=== PATIENT | male | born 1980 | race African-American/Black ===

== ENCOUNTER 2024-11-26 08:22 | Emergency (ER) | payer BC, OTHER ==
[~2024-11-26] VITALS: Ht 182.9 cm; Wt 78.0 kg
[2024-11-26 08:25] VITALS: O2SAT 99
[2024-11-26] MEDS: IBUPROFEN 400MG TABLET PO ONE (08:46)
[2024-11-26] MEDS: LIDOCAINE 5% PATCH TOP SCH (08:46)
[2024-11-26] MEDS ORDERED: LIDO1ADH71 EXT (09:13)
[2024-11-26] MEDS ORDERED: CYCL10TA21 MT (09:15)
[2024-11-26] MEDS ORDERED: IBUP-2028 MT (09:16)
[2024-11-26 09:25] VITALS: BP 137/101; PULSE 75; RESP 16; TEMP 36.6; O2SAT 99
== END 2024-11-26 09:35 | disposition home or self-care (01) ==
LOC: ER 08:22
DX: M62.838 Other muscle spasm (principal)
CPT/HCPCS: 99283

== ENCOUNTER 2024-12-04 09:49 | Inpatient (IN) | payer OTHER ==
[~2024-12-04] VITALS: Ht 182.9 cm; Wt 79.8 kg
[~2024-12-04 09:49] MED LIST: CYCL10TA21 MT; IBUP-2028 MT; LIDO1ADH71 EXT
[2024-12-04] MEDS ORDERED: IOHEXOL-350 100 ML BOTTLE ONE (11:10)
[2024-12-04 11:14] LABS: BASOPHILS % 1.2 % (0.0-2.0); EOSINOPHILS % 1.2 % (0.0-5.0); HEMATOCRIT. 42.7 % (42.0-52.0); LYMPHOCYTES % 25.2 % (20.0-50.0); MEAN CORPUSCULAR HEMOGLOBIN 26.7 pg (28.0-32.0); MEAN CORPUSCULAR HGB CONC 32.7 g/dL (31.0-37.0); MEAN CORPUSCULAR VOLUME 81.4 fL (80.0-94.0); MEAN PLATELET VOLUME 8.8 fl (7.4-10.4); MONOCYTES % 7.2 % (2.0-8.0); NEUTROPHILS % 65.2 % (40.0-76.0); PLATELET 294 x1000/uL (130-400); RED BLOOD CELL COUNT 5.24 mill/uL (4.7-6.1); RED CELL DISTRIBUTION WIDTH 14.9 % (11.6-14.6)
[2024-12-04 11:24] LABS: PROTHROMBIN TIME 10.6 sec (9.6-11.0)
[2024-12-04 11:49] LABS: CHLORIDE 103 mEq/L (98-107); POTASSIUM 4.1 mEq/L (3.5-5.1); SODIUM 139 mEq/L (136-145)
[2024-12-04 11:50] LABS: CALCIUM 9.1 mg/dL (8.7-10.4); CARBON DIOXIDE 24 mEq/L (21-32)
[2024-12-04 11:55] LABS: CREATININE 0.9 mg/dL (0.6-1.3); GLUCOSE 95 mg/dL (70-105); UREA NITROGEN BLOOD 11 mg/dL (9-23)
[2024-12-04 11:56] LABS: ETHANOL BLOOD 40 mg/dL (<10)
[2024-12-04 12:03] LABS: CLARITY URINE CLEAR (CLEAR); COLOR URINE YELLOW (YELLOW); GLUCOSE URINE NEGATIVE (NEGATIVE); KETONES URINE NEGATIVE (NEGATIVE); LEUKOCYTE ESTERASE URINE NEGATIVE (NEGATIVE); NITRITE URINE NEGATIVE (NEGATIVE); OCCULT BLOOD URINE NEGATIVE (NEGATIVE); PROTEIN URINE NEGATIVE (NEGATIVE); UROBILINOGEN URINE 0.2 E.U./dL (0.2-1.0)
[2024-12-04 12:21] LABS: *AMPHETAMINES SCREEN URINE NEGATIVE (NEGATIVE); *BARBITURATES SCREEN URINE NEGATIVE (NEGATIVE); *BENZODIAZEPINES SCREEN URINE NEGATIVE (NEGATIVE); *COCAINE SCREEN URINE NEGATIVE (NEGATIVE); CANNABINOID URINE SCREEN NEGATIVE (NEGATIVE); ECSTASY MDMA SCREEN URINE NEGATIVE (NEGATIVE); METHADONE URINE SCREEN NEGATIVE (NEGATIVE); OPIATES URINE SCREEN NEGATIVE (NEGATIVE); PHENCYCLIDINE URINE SCREEN NEGATIVE (NEGATIVE)
[2024-12-04] MEDS: KETOROLAC 30MG/ML VIAL IV STA (13:28)
[2024-12-04] MEDS: ACETAMINOPHEN 325MG TABLET PO STA (13:29)
[2024-12-04] MEDS ORDERED: ONDANSETRON HCL 4MG/2ML INJ IV PRN (14:15)
[2024-12-04] MEDS ORDERED: CLONIDINE 0.1MG TABLET PO PRN (14:15)
[2024-12-04] MEDS ORDERED: DOCUSATE SODIUM 100MG CAPSULE PO PRN (14:15)
[2024-12-04] MEDS ORDERED: IPRATROPIUM/ALBUTEROL 0.5-3(2.5)MG/3ML NEB HHN PRN (14:15)
[2024-12-04] MEDS ORDERED: ACETAMINOPHEN 325MG TABLET PO PRN ×2 (14:15)
[2024-12-04] MEDS ORDERED: GUAIFENESIN 200MG/10ML SUGAR FREE UDC PO PRN (14:15)
[2024-12-04] MEDS ORDERED: MAGNESIUM/ALUMINUM HYDROXIDE/SIMETHICONE 30ML UDC PO PRN (14:15)
[2024-12-04 14:30] VITALS: BP_SYST 131; BP_SYST 137; BP_DIAS 83; PULSE 87; RESP 18; RESP 20; TEMP 36.6; TEMP 36.7; O2SAT 100
[2024-12-04] MEDS: THIAMINE HCL 100MG TABLET PO SCH (15:21)
[2024-12-04 16:00] VITALS: BP 128/79; PULSE 91; RESP 18; TEMP 36.7; O2SAT 100
[2024-12-04 20:00] VITALS: BP 138/89; PULSE 90; RESP 18; TEMP 36.4; O2SAT 98
[2024-12-04] MEDS: ENOXAPARIN 40MG/0.4ML SYR SUBCUT SCH (20:59)
[2024-12-04] MEDS: BACLOFEN 10MG TABLET PO SCH (21:17)
[2024-12-04] MEDS: CYCLOBENZAPRINE 10MG TABLET PO SCH (21:17)
[2024-12-05] VITALS: BP 129/89; PULSE 64; RESP 20; TEMP 36.4; O2SAT 99
[2024-12-05 04:00] VITALS: BP 135/93; PULSE 66; RESP 18; TEMP 36.4; O2SAT 99
[2024-12-05] MEDS: PANTOPRAZOLE 40MG DR TABLET PO SCH (06:24)
[2024-12-05 07:02] LABS: BASOPHILS % 0.8 % (0.0-2.0); EOSINOPHILS % 1.7 % (0.0-5.0); HEMATOCRIT. 41.4 % (42.0-52.0); HEMOGLOBIN. 13.6 g/dL (14.0-18.0); LYMPHOCYTES % 28.5 % (20.0-50.0); MEAN CORPUSCULAR HEMOGLOBIN 26.6 pg (28.0-32.0); MEAN CORPUSCULAR HGB CONC 32.8 g/dL (31.0-37.0); MEAN CORPUSCULAR VOLUME 81.2 fL (80.0-94.0); MEAN PLATELET VOLUME 9.2 fl (7.4-10.4); PLATELET 260 x1000/uL (130-400); RED CELL DISTRIBUTION WIDTH 14.7 % (11.6-14.6); WHITE BLOOD COUNT 6.2 x1000/uL (4.5-11.0)
[2024-12-05 07:08] LABS: CALCIUM 9.4 mg/dL (8.7-10.4); CARBON DIOXIDE 25 mEq/L (21-32); CHLORIDE 101 mEq/L (98-107); POTASSIUM 3.9 mEq/L (3.5-5.1); SODIUM 135 mEq/L (136-145)
[2024-12-05 07:13] LABS: CREATININE 0.9 mg/dL (0.6-1.3); GLUCOSE 94 mg/dL (70-105); TRIGLYCERIDE 436 mg/dL (0-150)
[2024-12-05 07:14] LABS: LDL CHOLESTEROL 83 mg/dL (5-100); UREA NITROGEN BLOOD 11 mg/dL (9-23)
[2024-12-05 07:15] LABS: CHOLESTEROL 247 mg/dL (<200); HDL CHOLESTEROL 50 mg/dL (>55); THYROID STIMULATING HORMONE 2.29 uIU/mL (0.55-4.78)
[2024-12-05] MEDS: LIDOCAINE 5% PATCH TOP SCH (09:46)
[2024-12-05 12:28] VITALS: BP 118/83; PULSE 84; RESP 20; TEMP 36.4; O2SAT 98
[2024-12-05] MEDS ORDERED: LIDO700A30 TP (14:47)
[2024-12-05 15:40] VITALS: BP 118/83; PULSE 84; TEMP 97.9; O2SAT 98
== END 2024-12-05 15:38 | disposition home or self-care (01) | DRG 74 ==
LOC: ER 09:49 → 7EST 12:45 → EDBEDREQ 12:55 → EDBEDREQTM 12:55 → ENRESERV 13:22
PROVIDERS: ADMIT Hospitalist; ATTEND Hospitalist
DX: G62.9 Polyneuropathy, unspecified (principal); F10.10 Alcohol abuse, uncomplicated; Y90.2 Blood alcohol level of 40-59 mg/100 ml
CPT/HCPCS: 36415; 70496; 70498; 71045; 80048; 80061; 80305; 80320; 81003; 84439; 84443; 85025; 93005; 97162; 97166; 99285; J1650; J1885; Q9967; G0480